=== PATIENT | male | born 1960 | race Asian ===

== ENCOUNTER → 2017-05-08 | Outpatient (CLI) | payer BC ==
[2017-05-08 09:51] LABS: BASOPHILS % 1.1 % (0.0-2.0); EOSINOPHILS % 8.2 % (0.0-5.0); HEMATOCRIT. 42.5 % (42.0-52.0); HEMOGLOBIN. 14.6 g/dL (14.0-18.0); MEAN CORPUSCULAR HEMOGLOBIN 31.3 pg (28.0-32.0); MEAN CORPUSCULAR VOLUME 91.2 fL (80.0-94.0); MEAN PLATELET VOLUME 8.2 fl (7.4-10.4); MONOCYTES % 6.9 % (2.0-8.0); NEUTROPHILS % 49.8 % (40.0-76.0); PLATELET 236 x1000/uL (130-400); RED BLOOD CELL COUNT 4.65 mill/uL (4.7-6.1)
[2017-05-08 10:07] LABS: CHLORIDE 107 mEq/L (98-107)
[2017-05-08 10:16] LABS: HDL CHOLESTEROL 50 mg/dL (40-59); LDL CHOLESTEROL 110 mg/dL (5-100); T4 FREE 0.75 ng/dL (0.76-1.46)
[2017-05-08 10:33] LABS: VITAMIN B12 SERUM 929 pg/mL (211-911)
[2017-05-08 10:52] LABS: FOLIC ACID (FOLATE) SERUM > 20.00 ng/mL (>5.38)
== END | disposition home or self-care (01) ==
LOC: LAB 09:20
PROVIDERS: ATTEND Internal Medicine Endocrinology, Diabetes & Metabolism
DX: E55.9 Vitamin D deficiency, unspecified (principal); R73.9 Hyperglycemia, unspecified; G62.9 Polyneuropathy, unspecified; Z79.899 Other long term (current) drug therapy
CPT/HCPCS: 36415; 80053; 80061; 82306; 82607; 82746; 83036; 83921; 84439; 84443; 85025

== ENCOUNTER → 2017-08-05 | Outpatient (CLI) | payer BC ==
[2017-08-05 11:41] LABS: BASOPHILS % 1.1 % (0.0-2.0); HEMATOCRIT. 42.2 % (42.0-52.0); HEMOGLOBIN. 14.8 g/dL (14.0-18.0); LYMPHOCYTES % 33.8 % (20.0-50.0); MEAN CORPUSCULAR HEMOGLOBIN 31.7 pg (28.0-32.0); MEAN CORPUSCULAR VOLUME 90.3 fL (80.0-94.0); MEAN PLATELET VOLUME 8.3 fl (7.4-10.4); MONOCYTES % 6.9 % (2.0-8.0); NEUTROPHILS % 51.2 % (40.0-76.0); PLATELET 247 x1000/uL (130-400); RED BLOOD CELL COUNT 4.67 mill/uL (4.7-6.1); RED CELL DISTRIBUTION WIDTH 13.2 % (11.6-14.6)
[2017-08-05 11:55] LABS: CHLORIDE 105 mEq/L (98-107)
[2017-08-05 12:02] LABS: LDL CHOLESTEROL 104 mg/dL (5-100)
[2017-08-05 12:03] LABS: HDL CHOLESTEROL 46 mg/dL (40-59)
[2017-08-05 12:04] LABS: T4 FREE 0.82 ng/dL (0.76-1.46)
== END | disposition home or self-care (01) ==
LOC: LAB 11:16
PROVIDERS: ATTEND Internal Medicine Endocrinology, Diabetes & Metabolism
DX: E23.0 Hypopituitarism (principal); R73.9 Hyperglycemia, unspecified; Z79.899 Other long term (current) drug therapy
CPT/HCPCS: 36415; 80053; 80061; 82533; 83001; 83002; 83036; 84146; 84402; 84403; 84439; 84443; 85025; 86200

== ENCOUNTER → 2017-11-02 | Outpatient (CLI) | payer BC ==
[2017-11-02 10:15] LABS: BASOPHILS % 1.3 % (0.0-2.0); EOSINOPHILS % 5.1 % (0.0-5.0); HEMATOCRIT. 41.6 % (42.0-52.0); HEMOGLOBIN. 14.7 g/dL (14.0-18.0); MEAN CORPUSCULAR HEMOGLOBIN 31.7 pg (28.0-32.0); MEAN CORPUSCULAR VOLUME 89.6 fL (80.0-94.0); MEAN PLATELET VOLUME 8.4 fl (7.4-10.4); MONOCYTES % 6.3 % (2.0-8.0); NEUTROPHILS % 56.3 % (40.0-76.0); PLATELET 228 x1000/uL (130-400); RED BLOOD CELL COUNT 4.65 mill/uL (4.7-6.1); RED CELL DISTRIBUTION WIDTH 12.9 % (11.6-14.6)
[2017-11-02 10:24] LABS: CHLORIDE 109 mEq/L (98-107)
[2017-11-02 10:31] LABS: LDL CHOLESTEROL 110 mg/dL (5-100)
[2017-11-02 10:33] LABS: T4 FREE 0.84 ng/dL (0.76-1.46)
[2017-11-02 10:37] LABS: HDL CHOLESTEROL 44 mg/dL (40-59)
[2017-11-03 09:10] LABS: FOLICLE STIMULATING HORMONE 7.6 mIU/mL (1.5-12.4)
== END | disposition home or self-care (01) ==
LOC: LAB 09:32
PROVIDERS: ATTEND Internal Medicine Endocrinology, Diabetes & Metabolism
DX: Z12.5 Encounter for screening for malignant neoplasm of prostate (principal); R91.8 Other nonspecific abnormal finding of lung field; E23.0 Hypopituitarism; E78.5 Hyperlipidemia, unspecified; R73.9 Hyperglycemia, unspecified
CPT/HCPCS: 36415; 71046; 80053; 80061; 82024; 83001; 83002; 83036; 84153; 84402; 84403; 84439; 84443; 85025; G0103

== ENCOUNTER → 2017-11-24 | Outpatient (CLI) | payer BC ==
[~2017-11-24] MED LIST: GADOBENATE DIMEGLUMINE 529 MG/ML 10ML IV ONE; IOHEXOL-300 100 ML BOTTLE ONE
== END | disposition home or self-care (01) ==
LOC: MRI 09:14
PROVIDERS: ATTEND Internal Medicine Endocrinology, Diabetes & Metabolism
DX: E23.0 Hypopituitarism (principal); R91.8 Other nonspecific abnormal finding of lung field
CPT/HCPCS: 70553; 71270; A9577; Q9967

== ENCOUNTER → 2018-03-15 | Outpatient (CLI) | payer BC ==
[~2018-03-15] MED LIST changes: -GADOBENATE DIMEGLUMINE 529 MG/ML 10ML IV ONE; -IOHEXOL-300 100 ML BOTTLE ONE; +MESA800T PO; +P20 PO
[2018-03-15 13:59] LABS: HEMOGLOBIN. 13.4 g/dL (14.0-18.0); MEAN CORPUSCULAR HEMOGLOBIN 31.4 pg (28.0-32.0); MEAN CORPUSCULAR VOLUME 91.1 fL (80.0-94.0); MEAN PLATELET VOLUME 7.5 fl (7.4-10.4); PLATELET 335 x1000/uL (130-400); RED BLOOD CELL COUNT 4.28 mill/uL (4.7-6.1); RED CELL DISTRIBUTION WIDTH 13.4 % (11.6-14.6)
[2018-03-15 14:05] LABS: CHLORIDE 99 mEq/L (98-107)
[2018-03-15 14:12] LABS: TOTAL IRON BINDING CAPACITY 147 ug/dL (250-450)
[2018-03-15 20:43] LABS: PLATELET ESTIMATE NORMAL
== END | disposition home or self-care (01) ==
LOC: LAB 13:20
PROVIDERS: ATTEND Internal Medicine Endocrinology, Diabetes & Metabolism
DX: K86.1 Other chronic pancreatitis (principal); E78.00 Pure hypercholesterolemia, unspecified
CPT/HCPCS: 36415; 83540; 83550; 85651; 86140

== ENCOUNTER 2018-03-19 02:19 | Inpatient (IN) | payer BC, OTHER ==
[~2018-03-19] VITALS: Ht 172.7 cm; Wt 67.3 kg
[~2018-03-19 02:19] MED LIST changes: -P20 PO
[2018-03-19] MEDS ORDERED: ONDANSETRON HCL 4MG/2ML INJ IV STA (04:17)
[2018-03-19] MEDS ORDERED: SODIUM CHLORIDE 0.9% 1,000 ML IV ONE (04:17)
[2018-03-19] MEDS ORDERED: MORPHINE SULFATE 10 MG/ML CPJ IV ONE (04:30)
[2018-03-19 04:55] LABS: BASOPHILS % 0.2 % (0.0-2.0); EOSINOPHILS % 0.3 % (0.0-5.0); HEMATOCRIT. 43.3 % (42.0-52.0); HEMOGLOBIN. 14.9 g/dL (14.0-18.0); LYMPHOCYTES % 14.3 % (20.0-50.0); MEAN CORPUSCULAR HEMOGLOBIN 31.7 pg (28.0-32.0); MEAN CORPUSCULAR VOLUME 92.1 fL (80.0-94.0); MEAN PLATELET VOLUME 8.7 fl (7.4-10.4); MONOCYTES % 7.6 % (2.0-8.0); NEUTROPHILS % 77.6 % (40.0-76.0); PLATELET 404 x1000/uL (130-400); RED CELL DISTRIBUTION WIDTH 13.8 % (11.6-14.6)
[2018-03-19 05:00] LABS: CHLORIDE 101 mEq/L (98-107)
[2018-03-19 10:00] VITALS: BP 122/69
[2018-03-19 10:30] VITALS: BP 122/69
[2018-03-19] MEDS ORDERED: HYDROMORPHONE HCL/PF 2MG/ML CPJ IV PRN (10:30)
[2018-03-19 10:58] LABS: CLARITY URINE CLOUDY (CLEAR); COLOR URINE ORANGE (YELLOW); KETONES URINE TRACE (NEGATIVE); LEUKOCYTE ESTERASE URINE 1+ (NEGATIVE); NITRITE URINE POSITIVE (NEGATIVE); OCCULT BLOOD URINE NEGATIVE (NEGATIVE); PH URINE 5.5 (4.5-8.0); PROTEIN URINE TRACE (NEGATIVE); SPECIFIC GRAVITY URINE 1.029 (1.005-1.030); UROBILINOGEN URINE 0.2 E.U./dL (0.2-1.0)
[2018-03-19 12:00] VITALS: BP 109/64
[2018-03-19] MEDS ORDERED: FAMOTIDINE 20MG/2ML VIAL IV SCH (12:00)
[2018-03-19] MEDS: DEXT 5%/0.45% NACL KCL 20MEQ/L 1,000 ML IV SCH ×2 (12:23→21:32)
[2018-03-19] MEDS: PIPERACILLIN/TAZ 3.375G PREMIX 50 ML IV SCH ×2 (12:23→21:32)
[2018-03-19] MEDS ORDERED: METHYLPREDNISOLONE SOD SUCC 125 MG/2 ML VIAL IV SCH (12:45)
[2018-03-19] MEDS: MESALAMINE 400 MG CAPSULE.DR PO SCH ×3 (13:00→17:45)
[2018-03-19] MEDS: AZITHROMYCIN 500 MG in DEXT 5% WATER 250 ML IV SCH (14:10)
[2018-03-19 16:00] VITALS: BP 105/65
[2018-03-19] MEDS: METHYLPREDNISOLONE SOD SUCC 40 MG/ML VIAL IV SCH (17:42)
[2018-03-19] MEDS: PANTOPRAZOLE SODIUM 40 MG/VIAL IV SCH (17:42)
[2018-03-19] MEDS: NYSTATIN 100,000 UNITS/ML 5ML UDC SSW SCH (17:43)
[2018-03-19] MEDS ORDERED: P20 PO (19:53)
[2018-03-19 20:00] VITALS: BP 105/62
[2018-03-19] MEDS ORDERED: ONDANSETRON HCL 4MG/2ML INJ IV PRN (20:15)
[2018-03-19 20:39] LABS: AMYLASE 341 IU/L (25-115)
[2018-03-20] VITALS: BP 93/48
[2018-03-20] MEDS: METHYLPREDNISOLONE SOD SUCC 40 MG/ML VIAL IV SCH ×3 (00:12→18:49)
[2018-03-20] MEDS: NYSTATIN 100,000 UNITS/ML 5ML UDC SSW SCH ×4 (00:12→18:49)
[2018-03-20] MEDS: DEXT 5%/0.45% NACL KCL 20MEQ/L 1,000 ML IV SCH ×3 (03:03→22:19)
[2018-03-20 04:00] VITALS: BP 108/64
[2018-03-20] MEDS: PIPERACILLIN/TAZ 3.375G PREMIX 50 ML IV SCH ×3 (05:00→22:19)
[2018-03-20 07:03] LABS: HEMATOCRIT. 36.4 % (42.0-52.0); HEMOGLOBIN. 12.6 g/dL (14.0-18.0); MEAN CORPUSCULAR HEMOGLOBIN 31.8 pg (28.0-32.0); MEAN CORPUSCULAR VOLUME 91.7 fL (80.0-94.0); PLATELET 265 x1000/uL (130-400); RED BLOOD CELL COUNT 3.97 mill/uL (4.7-6.1); RED CELL DISTRIBUTION WIDTH 13.6 % (11.6-14.6)
[2018-03-20 07:05] LABS: CHLORIDE 102 mEq/L (98-107)
[2018-03-20 08:00] VITALS: BP 103/55
[2018-03-20] MEDS: MESALAMINE 400 MG CAPSULE.DR PO SCH ×3 (08:59→19:28)
[2018-03-20] MEDS: PANTOPRAZOLE SODIUM 40 MG/VIAL IV SCH (08:59)
[2018-03-20] MEDS ORDERED: DEXTROSE 50% WATER 50ML SYRINGE IV PRN (11:15)
[2018-03-20] MEDS ORDERED: INSULIN LISPRO 100 UNITS/ML SUBCUT SCH (12:20)
[2018-03-20] MEDS ORDERED: BLOOD SUGAR DIAGNOSTIC STRIP TEST SCH (12:20)
[2018-03-20] MEDS: BLOOD SUGAR DIAGNOSTIC STRIP TEST SCH ×3 (12:54→21:15)
[2018-03-20] MEDS: AZITHROMYCIN 500 MG in DEXT 5% WATER 250 ML IV SCH (13:23)
[2018-03-20] MEDS: INSULIN LISPRO (LOW DOSE) 100 UNITS/ML SUBCUT SCH ×2 (13:30→19:33)
[2018-03-20 16:00] VITALS: BP 109/65
[2018-03-20 20:00] VITALS: BP 101/59
[2018-03-20 22:28] LABS: T4 FREE 1.04 ng/dL (0.76-1.46)
[2018-03-21] MEDS: NYSTATIN 100,000 UNITS/ML 5ML UDC SSW SCH ×4 (00:07→17:39)
[2018-03-21] MEDS: METHYLPREDNISOLONE SOD SUCC 40 MG/ML VIAL IV SCH ×3 (00:07→17:39)
[2018-03-21 00:47] VITALS: BP 96/53
[2018-03-21 04:00] VITALS: BP 104/59
[2018-03-21] MEDS: PIPERACILLIN/TAZ 3.375G PREMIX 50 ML IV SCH ×2 (05:44→14:25)
[2018-03-21] MEDS: DEXT 5%/0.45% NACL KCL 20MEQ/L 1,000 ML IV SCH (05:44)
[2018-03-21] MEDS: BLOOD SUGAR DIAGNOSTIC STRIP TEST SCH ×4 (06:21→21:33)
[2018-03-21 07:14] LABS: CHLORIDE 101 mEq/L (98-107)
[2018-03-21 07:18] LABS: HEMATOCRIT. 39.5 % (42.0-52.0); HEMOGLOBIN. 13.3 g/dL (14.0-18.0); MEAN CORPUSCULAR VOLUME 92.2 fL (80.0-94.0); PLATELET 290 x1000/uL (130-400); RED BLOOD CELL COUNT 4.28 mill/uL (4.7-6.1); RED CELL DISTRIBUTION WIDTH 13.8 % (11.6-14.6)
[2018-03-21 07:20] LABS: PHOSPHORUS 2.9 mg/dL (2.5-4.9)
[2018-03-21 08:00] VITALS: BP 102/64
[2018-03-21] MEDS: MESALAMINE 400 MG CAPSULE.DR PO SCH ×3 (09:38→17:39)
[2018-03-21] MEDS: PANTOPRAZOLE SODIUM 40 MG/VIAL IV SCH (09:38)
[2018-03-21] MEDS: INSULIN LISPRO (LOW DOSE) 100 UNITS/ML SUBCUT SCH ×3 (09:44→17:44)
[2018-03-21 10:31] LABS: PLATELET ESTIMATE NORMAL
[2018-03-21 12:00] VITALS: BP 110/62
[2018-03-21] MEDS: INSULIN GLARGINE UD 100 UNITS/ML SYR SUBCUT SCH (12:51)
[2018-03-21] MEDS: SODIUM CHL 0.45% + KCL 20MEQ/L 1,000 ML IV SCH (14:25)
[2018-03-21] MEDS: AZITHROMYCIN 500 MG in DEXT 5% WATER 250 ML IV SCH (14:27)
[2018-03-21 15:19] LABS: PLATELET ESTIMATE NORMAL
[2018-03-21 16:00] VITALS: BP 107/67
[2018-03-21 20:00] VITALS: BP 102/62
[2018-03-21] MEDS ORDERED: PIPERACILLIN/TAZ 3.375G PREMIX 50 ML IV SCH (21:00)
[2018-03-22] VITALS: BP 108/65
[2018-03-22] MEDS: SODIUM CHL 0.45% + KCL 20MEQ/L 1,000 ML IV SCH ×4 (00:02→22:00)
[2018-03-22] MEDS: NYSTATIN 100,000 UNITS/ML 5ML UDC SSW SCH ×4 (00:02→18:01)
[2018-03-22] MEDS: METHYLPREDNISOLONE SOD SUCC 40 MG/ML VIAL IV SCH ×2 (00:02→09:19)
[2018-03-22 04:00] VITALS: BP 104/64
[2018-03-22] MEDS: BLOOD SUGAR DIAGNOSTIC STRIP TEST SCH ×4 (06:32→21:25)
[2018-03-22 08:00] VITALS: BP 104/66
[2018-03-22 08:03] LABS: HEMATOCRIT. 37.8 % (42.0-52.0); HEMOGLOBIN. 12.9 g/dL (14.0-18.0); MEAN CORPUSCULAR HEMOGLOBIN 31.5 pg (28.0-32.0); MEAN CORPUSCULAR VOLUME 92.2 fL (80.0-94.0); PLATELET 298 x1000/uL (130-400); RED CELL DISTRIBUTION WIDTH 13.7 % (11.6-14.6)
[2018-03-22 08:51] LABS: CHLORIDE 102 mEq/L (98-107)
[2018-03-22 09:02] LABS: PHOSPHORUS 3.7 mg/dL (2.5-4.9)
[2018-03-22] MEDS: PANTOPRAZOLE SODIUM 40 MG/VIAL IV SCH (09:19)
[2018-03-22] MEDS: MESALAMINE 400 MG CAPSULE.DR PO SCH ×3 (09:20→18:01)
[2018-03-22] MEDS: INSULIN LISPRO (LOW DOSE) 100 UNITS/ML SUBCUT SCH ×3 (09:30→18:09)
[2018-03-22] MEDS: INSULIN GLARGINE UD 100 UNITS/ML SYR SUBCUT SCH (10:45)
[2018-03-22 12:00] VITALS: BP 107/54
[2018-03-22 12:00] LABS: PLATELET ESTIMATE NORMAL
[2018-03-22 16:00] VITALS: BP 112/77
[2018-03-22 20:00] VITALS: BP 110/70
[2018-03-22] MEDS ORDERED: INSULIN LISPRO 100 UNITS/ML SUBCUT NR (21:20)
[2018-03-23] VITALS: BP 103/54
[2018-03-23] MEDS: NYSTATIN 100,000 UNITS/ML 5ML UDC SSW SCH ×3 (00:36→13:45)
[2018-03-23 04:00] VITALS: BP 115/79
[2018-03-23] MEDS: SODIUM CHL 0.45% + KCL 20MEQ/L 1,000 ML IV SCH ×2 (05:19→13:45)
[2018-03-23] MEDS: BLOOD SUGAR DIAGNOSTIC STRIP TEST SCH ×2 (07:01→13:18)
[2018-03-23] MEDS: INSULIN LISPRO (LOW DOSE) 100 UNITS/ML SUBCUT SCH ×2 (07:20→13:52)
[2018-03-23 08:00] VITALS: BP 105/61
[2018-03-23] MEDS ORDERED: PREDNISONE 20MG TABLET PO SCH (09:00)
[2018-03-23 09:21] LABS: HEMATOCRIT. 39.5 % (42.0-52.0); HEMOGLOBIN. 13.4 g/dL (14.0-18.0); MEAN CORPUSCULAR HEMOGLOBIN 31.2 pg (28.0-32.0); MEAN CORPUSCULAR VOLUME 92.1 fL (80.0-94.0); PLATELET 300 x1000/uL (130-400); RED BLOOD CELL COUNT 4.29 mill/uL (4.7-6.1); RED CELL DISTRIBUTION WIDTH 13.9 % (11.6-14.6)
[2018-03-23 09:36] LABS: CHLORIDE 104 mEq/L (98-107)
[2018-03-23] MEDS: PANTOPRAZOLE SODIUM 40 MG/VIAL IV SCH (09:36)
[2018-03-23] MEDS: MESALAMINE 400 MG CAPSULE.DR PO SCH ×2 (09:37→13:44)
[2018-03-23] MEDS ORDERED: INSULIN GLARGINE UD 100 UNITS/ML SYR SUBCUT SCH (10:00)
[2018-03-23 12:00] VITALS: BP 103/62
[2018-03-23 14:26] LABS: PLATELET ESTIMATE NORMAL
[2018-03-23 16:00] VITALS: BP 108/62
[2018-03-23 16:43] VITALS: BP 108/62
[2018-03-24 13:06] LABS: SACCHAROMYCES CEREVISIAE IGG 25.8 Units (0.0-24.9); SACCHAROMYCES CEREVISIAE IGM <20.0 Units (0.0-24.9)
[2018-03-24 14:23] LABS: ATYPICAL pANCA <1:20 titer (Neg:<1:20)
[2018-03-24 15:07] LABS: QFT MITOGEN VALUE 0.28 IU/mL (.); QFT TB GOLD PLUS Indeterminate (Negative); QFT TB1 AG VALUE 0.03 IU/mL (.)
== END 2018-03-23 18:02 | disposition home or self-care (01) | DRG 282 ==
LOC: ER 02:19 → ENRESERV 08:04 → 6EST 08:43 → EDBEDREQ 08:47 → 6WST 03-20 12:32
PROVIDERS: ADMIT Internal Medicine Endocrinology, Diabetes & Metabolism; ATTEND Internal Medicine Endocrinology, Diabetes & Metabolism
DX: K85.90 Acute pancreatitis without necrosis or infection, unspecified (principal); E46 Unspecified protein-calorie malnutrition; M48.56XA Collapsed vertebra, not elsewhere classified, lumbar region, initial encounter for fracture; E11.65 Type 2 diabetes mellitus with hyperglycemia; E11.36 Type 2 diabetes mellitus with diabetic cataract; K51.00 Ulcerative (chronic) pancolitis without complications; K76.89 Other specified diseases of liver; K52.9 Noninfective gastroenteritis and colitis, unspecified; T38.0X5A Adverse effect of glucocorticoids and synthetic analogues, initial encounter; K80.20 Calculus of gallbladder without cholecystitis without obstruction; H26.9 Unspecified cataract; B37.49 Other urogenital candidiasis; N40.1 Benign prostatic hyperplasia with lower urinary tract symptoms; R91.1 Solitary pulmonary nodule; R00.1 Bradycardia, unspecified; E78.00 Pure hypercholesterolemia, unspecified; M81.0 Age-related osteoporosis without current pathological fracture; Z82.49 Family history of ischemic heart disease and other diseases of the circulatory system; Z82.3 Family history of stroke; Z68.22 Body mass index [BMI] 22.0-22.9, adult; Z83.3 Family history of diabetes mellitus; Z86.11 Personal history of tuberculosis; Z79.899 Other long term (current) drug therapy; Z87.891 Personal history of nicotine dependence; Y92.89 Other specified places as the place of occurrence of the external cause
CPT/HCPCS: 36415; 74018; 74177; 76700; 80048; 80061; 80076; 82150; 82270; 82330; 82705; 82962; 83036; 83605; 83735; 84100; 84134; 84439; 84443; 84681; 85007; 85027; 86256; 86480; 86671; 87015; 87045; 87177; 87209; 87427; 87449; 87493; 89055; 93005; 93306; 99285; C9113; J0456; J1170; J1815; J2270; J2405; J2543; J2920; J2930; J3480; J3490; J7030; J7050; J7060; J7512; Q9967

== ENCOUNTER → 2018-05-21 | Outpatient (CLI) | payer BC ==
[~2018-05-21] MED LIST changes: +P20 PO
[2018-05-21 09:09] LABS: BASOPHILS % 0.8 % (0.0-2.0); EOSINOPHILS % 1.1 % (0.0-5.0); HEMATOCRIT. 40.8 % (42.0-52.0); HEMOGLOBIN. 14.1 g/dL (14.0-18.0); LYMPHOCYTES % 36.4 % (20.0-50.0); MEAN CORPUSCULAR HEMOGLOBIN 32.7 pg (28.0-32.0); MEAN CORPUSCULAR VOLUME 94.4 fL (80.0-94.0); MEAN PLATELET VOLUME 8.4 fl (7.4-10.4); NEUTROPHILS % 53.7 % (40.0-76.0); PLATELET 243 x1000/uL (130-400); RED BLOOD CELL COUNT 4.32 mill/uL (4.7-6.1); RED CELL DISTRIBUTION WIDTH 14.2 % (11.6-14.6)
[2018-05-21 09:19] LABS: CHLORIDE 106 mEq/L (98-107)
[2018-05-21 09:29] LABS: LDL CHOLESTEROL 105 mg/dL (5-100)
[2018-05-21 09:32] LABS: HDL CHOLESTEROL 83 mg/dL (40-59); T4 FREE 0.91 ng/dL (0.76-1.46)
[2018-05-21 09:35] LABS: AMYLASE 153 IU/L (25-115)
== END | disposition home or self-care (01) ==
LOC: LAB 08:20
PROVIDERS: ATTEND Internal Medicine Endocrinology, Diabetes & Metabolism
DX: E03.9 Hypothyroidism, unspecified (principal); E11.9 Type 2 diabetes mellitus without complications; K85.90 Acute pancreatitis without necrosis or infection, unspecified; J98.4 Other disorders of lung
CPT/HCPCS: 36415; 80061; 82150; 82306; 83036; 84439; 84443

== ENCOUNTER → 2018-05-26 | Outpatient (CLI) | payer BC ==
[~2018-05-26] MED LIST changes: +IOHEXOL-300 100 ML BOTTLE ONE
== END | disposition home or self-care (01) ==
LOC: CT 07:45
PROVIDERS: ATTEND Internal Medicine Endocrinology, Diabetes & Metabolism
DX: K80.20 Calculus of gallbladder without cholecystitis without obstruction (principal); J98.4 Other disorders of lung
CPT/HCPCS: 71270; Q9967

== ENCOUNTER → 2018-08-18 | Outpatient (CLI) | payer BC ==
[~2018-08-18] MED LIST changes: -IOHEXOL-300 100 ML BOTTLE ONE
== END | disposition home or self-care (01) ==
LOC: MAMMO 09:40
PROVIDERS: ATTEND Internal Medicine Endocrinology, Diabetes & Metabolism
DX: M81.8 Other osteoporosis without current pathological fracture (principal)
CPT/HCPCS: 77080

== ENCOUNTER → 2018-08-24 | Outpatient (CLI) | payer BC ==
[~2018-08-24] MED LIST changes: +ALBUTEROL (0.083%) 2.5MG/3ML NEB ONE
== END | disposition home or self-care (01) ==
LOC: PF 12:19
PROVIDERS: ATTEND Internal Medicine Endocrinology, Diabetes & Metabolism
DX: R06.02 Shortness of breath (principal)
CPT/HCPCS: 94060; 94727; 94729; J7611

== ENCOUNTER → 2018-12-10 | Outpatient (CLI) | payer BC ==
[~2018-12-10] MED LIST changes: -ALBUTEROL (0.083%) 2.5MG/3ML NEB ONE
[2018-12-10 10:33] LABS: EOSINOPHILS % 7.5 % (0.0-5.0); HEMATOCRIT. 41.9 % (42.0-52.0); HEMOGLOBIN. 14.7 g/dL (14.0-18.0); LYMPHOCYTES % 23.8 % (20.0-50.0); MEAN CORPUSCULAR HEMOGLOBIN 32.6 pg (28.0-32.0); MEAN CORPUSCULAR VOLUME 93.2 fL (80.0-94.0); MEAN PLATELET VOLUME 8.1 fl (7.4-10.4); MONOCYTES % 6.9 % (2.0-8.0); NEUTROPHILS % 60.8 % (40.0-76.0); PLATELET 194 x1000/uL (130-400); RED BLOOD CELL COUNT 4.49 mill/uL (4.7-6.1); RED CELL DISTRIBUTION WIDTH 13.2 % (11.6-14.6)
[2018-12-10 10:37] LABS: CLARITY URINE CLEAR (CLEAR); COLOR URINE YELLOW (YELLOW); KETONES URINE TRACE (NEGATIVE); LEUKOCYTE ESTERASE URINE NEGATIVE (NEGATIVE); NITRITE URINE NEGATIVE (NEGATIVE); OCCULT BLOOD URINE NEGATIVE (NEGATIVE); PROTEIN URINE NEGATIVE (NEGATIVE); SPECIFIC GRAVITY URINE 1.026 (1.005-1.030); UROBILINOGEN URINE 0.2 E.U./dL (0.2-1.0)
[2018-12-10 10:49] LABS: PROTHROMBIN TIME 10.2 sec (9.6-11.0)
[2018-12-10 10:58] LABS: CHLORIDE 109 mEq/L (98-107)
[2018-12-10 11:06] LABS: LDL CHOLESTEROL 101 mg/dL (5-100)
[2018-12-10 11:07] LABS: HDL CHOLESTEROL 50 mg/dL (40-59)
[2018-12-10 11:08] LABS: T4 FREE 0.87 ng/dL (0.76-1.46)
[2018-12-11 10:06] LABS: *CREATININE RANDOM URINE 210.1 mg/dL (Not Estab.); MICROALBUMIN RANDOM URINE 9.3 ug/mL (Not Estab.)
== END | disposition home or self-care (01) ==
LOC: LAB 09:51
PROVIDERS: ATTEND Internal Medicine Endocrinology, Diabetes & Metabolism
DX: E11.9 Type 2 diabetes mellitus without complications (principal); E78.5 Hyperlipidemia, unspecified; I10 Essential (primary) hypertension; K21.9 Gastro-esophageal reflux disease without esophagitis
CPT/HCPCS: 36415; 80061; 81003; 82043; 82306; 82570; 83036; 84439; 84443

== ENCOUNTER → 2018-12-16 | Outpatient (CLI) | payer BC | END | disposition home or self-care (01) | LOC: CARD 10:24 | PROVIDERS: ATTEND Specialist | DX: Z01.810 Encounter for preprocedural cardiovascular examination (principal); R94.31 Abnormal electrocardiogram [ECG] [EKG] | CPT/HCPCS: 93350 ==

== ENCOUNTER 2019-02-01 12:32 | Emergency (ER) | payer BC ==
[~2019-02-01] VITALS: Ht 172.7 cm; Wt 76.0 kg
[2019-02-01] MEDS: LACTATED RINGERS 1,000 ML IV STA ×2 (14:52→16:48)
[2019-02-01 15:02] LABS: BASOPHILS % 0.1 % (0.0-2.0); HEMATOCRIT. 43.2 % (42.0-52.0); HEMOGLOBIN. 14.8 g/dL (14.0-18.0); LYMPHOCYTES % 10.2 % (20.0-50.0); MEAN CORPUSCULAR HEMOGLOBIN 31.7 pg (28.0-32.0); MEAN CORPUSCULAR VOLUME 92.5 fL (80.0-94.0); MEAN PLATELET VOLUME 8.4 fl (7.4-10.4); MONOCYTES % 1.8 % (2.0-8.0); NEUTROPHILS % 87.9 % (40.0-76.0); PLATELET 296 x1000/uL (130-400); RED BLOOD CELL COUNT 4.67 mill/uL (4.7-6.1); RED CELL DISTRIBUTION WIDTH 13.4 % (11.6-14.6)
[2019-02-01 15:09] LABS: CHLORIDE 102 mEq/L (98-107)
[2019-02-01 18:46] VITALS: BP 120/77
== END 2019-02-01 18:49 | disposition home or self-care (01) ==
LOC: ER 12:32
DX: K51.90 Ulcerative colitis, unspecified, without complications (principal); E86.0 Dehydration; R53.83 Other fatigue; R19.7 Diarrhea, unspecified; R11.0 Nausea; R42 Dizziness and giddiness; Z98.890 Other specified postprocedural states
CPT/HCPCS: 36415; 80053; 83605; 83690; 85025; 86140; 96360; 96361; 99283; J7120; Z7610

== ENCOUNTER → 2019-02-03 | Outpatient (CLI) | payer BC ==
[~2019-02-03] MED LIST changes: +AZAT50TA24 PO
[2019-02-06 13:07] LABS: OVA & PARASITE EXAM Final report (.)
== END | disposition home or self-care (01) ==
LOC: LAB 13:05
PROVIDERS: ATTEND Internal Medicine Gastroenterology
DX: K51.90 Ulcerative colitis, unspecified, without complications (principal)
CPT/HCPCS: 82270; 87015; 87045; 87177; 87209; 87427; 87449; 87493; 89055

== ENCOUNTER 2019-02-09 19:24 | Inpatient (IN) | payer BC ==
[~2019-02-09] VITALS: Ht 167.6 cm; Wt 75.8 kg
[~2019-02-09 19:24] MED LIST changes: -AZAT50TA24 PO
[2019-02-09] MEDS ORDERED: SODIUM CHLORIDE 0.9% 1,000 ML IV ONE ×2 (20:34→20:57)
[2019-02-09] MEDS ORDERED: MORPHINE SULFATE 4 MG/ML CPJ (NOT FOR IM USE) IV STA (20:34)
[2019-02-09 20:54] LABS: BASOPHILS % 0.2 % (0.0-2.0); EOSINOPHILS % 0.1 % (0.0-5.0); HEMATOCRIT. 36.5 % (42.0-52.0); HEMOGLOBIN. 12.8 g/dL (14.0-18.0); LYMPHOCYTES % 9.1 % (20.0-50.0); MEAN CORPUSCULAR VOLUME 91.6 fL (80.0-94.0); MONOCYTES % 7.4 % (2.0-8.0); NEUTROPHILS % 83.2 % (40.0-76.0); PLATELET 295 x1000/uL (130-400); RED BLOOD CELL COUNT 3.98 mill/uL (4.7-6.1); RED CELL DISTRIBUTION WIDTH 13.3 % (11.6-14.6)
[2019-02-09 20:58] LABS: CHLORIDE 106 mEq/L (98-107); PROTHROMBIN TIME 10.8 sec (9.6-11.0)
[2019-02-09] MEDS ORDERED: PIPERACILLIN/TAZOBACTAM 3.375GM/50ML PREMIX IV ONE (21:00)
[2019-02-09] MEDS ORDERED: PIPERACILLIN/TAZOBACTAM 3.375 G in DEXT 5% WATER 100 ML IV NR (21:04)
[2019-02-09 22:30] LABS: CLARITY URINE CLEAR (CLEAR); COLOR URINE YELLOW (YELLOW); KETONES URINE NEGATIVE (NEGATIVE); LEUKOCYTE ESTERASE URINE NEGATIVE (NEGATIVE); NITRITE URINE NEGATIVE (NEGATIVE); OCCULT BLOOD URINE NEGATIVE (NEGATIVE); PROTEIN URINE 1+ (NEGATIVE); SPECIFIC GRAVITY URINE 1.039 (1.005-1.030); UROBILINOGEN URINE 0.2 E.U./dL (0.2-1.0)
[2019-02-09] MEDS ORDERED: IOHEXOL-300 100 ML BOTTLE ONE (22:50)
[2019-02-10] VITALS (7 sets, daily range): BP systolic 103–128; BP diastolic 56–72
[2019-02-10] MEDS ORDERED: SODIUM CHLORIDE 0.9% 1,000 ML IV ONE (01:00)
[2019-02-10] MEDS ORDERED: ACETAMINOPHEN 325MG TABLET PO PRN (01:30)
[2019-02-10] MEDS ORDERED: AZAT50TA24 PO (01:48)
[2019-02-10] MEDS: HYDROMORPHONE HCL/PF 2MG/ML CPJ IV PRN ×3 (02:30→17:57)
[2019-02-10] MEDS ORDERED: SODIUM CHL 0.9% + KCL 20MEQ/L 1,000 ML IV SCH (03:00)
[2019-02-10] MEDS: METHYLPREDNISOLONE SOD SUCC 40 MG/ML VIAL IV SCH ×3 (03:27→18:35)
[2019-02-10] MEDS: INSULIN LISPRO (LOW DOSE) 100 UNITS/ML SUBCUT SCH ×3 (06:00→18:00)
[2019-02-10] MEDS ORDERED: INSULIN LISPRO 100 UNITS/ML SUBCUT SCH (06:00)
[2019-02-10] MEDS: METRONIDAZOLE 500 MG PREMIX 100 ML IV SCH ×4 (06:17→23:54)
[2019-02-10] MEDS: BLOOD SUGAR DIAGNOSTIC STRIP TEST SCH ×3 (06:45→18:44)
[2019-02-10 07:06] LABS: BASOPHILS % 0.1 % (0.0-2.0); EOSINOPHILS % 0.7 % (0.0-5.0); HEMATOCRIT. 34.4 % (42.0-52.0); LYMPHOCYTES % 7.8 % (20.0-50.0); MEAN CORPUSCULAR HEMOGLOBIN 32.2 pg (28.0-32.0); MEAN CORPUSCULAR VOLUME 92.4 fL (80.0-94.0); MEAN PLATELET VOLUME 8.1 fl (7.4-10.4); MONOCYTES % 7.7 % (2.0-8.0); NEUTROPHILS % 83.7 % (40.0-76.0); PLATELET 278 x1000/uL (130-400); RED BLOOD CELL COUNT 3.73 mill/uL (4.7-6.1)
[2019-02-10 07:12] LABS: CHLORIDE 107 mEq/L (98-107)
[2019-02-10 07:30] LABS: AMYLASE 147 IU/L (25-115)
[2019-02-10] MEDS: LEVOFLOXACIN 500MG PREMIX 100 ML IV SCH (08:00)
[2019-02-10] MEDS: MESALAMINE 400 MG CAPSULE.DR PO SCH ×3 (09:57→17:58)
[2019-02-10] MEDS: FAMOTIDINE 20MG/2ML VIAL IV SCH ×2 (09:58→20:54)
[2019-02-10] MEDS: POTASSIUM CHLORIDE INJ 40 MEQ in SODIUM CHLORIDE 0.9% 1,000 ML IV SCH ×2 (18:35→20:54)
[2019-02-10] MEDS: AZATHIOPRINE 50MG TABLET PO SCH (20:00)
[2019-02-11] VITALS: BP 101/62
[2019-02-11] MEDS: BLOOD SUGAR DIAGNOSTIC STRIP TEST SCH ×4 (00:05→17:29)
[2019-02-11] MEDS: INSULIN LISPRO (LOW DOSE) 100 UNITS/ML SUBCUT SCH ×4 (00:18→17:29)
[2019-02-11] MEDS: HYDROMORPHONE HCL/PF 2MG/ML CPJ IV PRN ×3 (02:54→21:44)
[2019-02-11 04:00] VITALS: BP 104/60
[2019-02-11] MEDS: METHYLPREDNISOLONE SOD SUCC 40 MG/ML VIAL IV SCH ×2 (06:37→17:17)
[2019-02-11] MEDS: METRONIDAZOLE 500 MG PREMIX 100 ML IV SCH ×3 (06:37→17:19)
[2019-02-11 08:00] VITALS: BP 107/67
[2019-02-11] MEDS: FAMOTIDINE 20MG/2ML VIAL IV SCH ×2 (08:22→21:05)
[2019-02-11] MEDS: LEVOFLOXACIN 500MG PREMIX 100 ML IV SCH (08:22)
[2019-02-11] MEDS: AZATHIOPRINE 50MG TABLET PO SCH (08:23)
[2019-02-11] MEDS: MESALAMINE 400 MG CAPSULE.DR PO SCH ×3 (08:23→17:17)
[2019-02-11 08:37] LABS: HEMATOCRIT. 34.2 % (42.0-52.0); LYMPHOCYTES % 10.6 % (20.0-50.0); MEAN CORPUSCULAR HEMOGLOBIN 32.4 pg (28.0-32.0); MEAN CORPUSCULAR VOLUME 92.3 fL (80.0-94.0); MEAN PLATELET VOLUME 8.8 fl (7.4-10.4); MONOCYTES % 9.2 % (2.0-8.0); NEUTROPHILS % 80.2 % (40.0-76.0); PLATELET 284 x1000/uL (130-400); RED BLOOD CELL COUNT 3.71 mill/uL (4.7-6.1); RED CELL DISTRIBUTION WIDTH 13.2 % (11.6-14.6)
[2019-02-11 08:46] LABS: CHLORIDE 109 mEq/L (98-107)
[2019-02-11 09:00] LABS: PHOSPHORUS 2.7 mg/dL (2.5-4.9)
[2019-02-11 12:00] VITALS: BP 105/61
[2019-02-11 16:00] VITALS: BP 119/67
[2019-02-11 20:00] VITALS: BP 109/71
[2019-02-12] VITALS: BP 109/69
[2019-02-12] MEDS: METRONIDAZOLE 500 MG PREMIX 100 ML IV SCH ×5 (00:37→23:23)
[2019-02-12] MEDS: BLOOD SUGAR DIAGNOSTIC STRIP TEST SCH ×5 (00:37→23:31)
[2019-02-12] MEDS: POTASSIUM CHLORIDE INJ 40 MEQ in SODIUM CHLORIDE 0.9% 1,000 ML IV SCH ×3 (00:37→17:39)
[2019-02-12] MEDS: INSULIN LISPRO (LOW DOSE) 100 UNITS/ML SUBCUT SCH ×5 (01:02→23:38)
[2019-02-12 04:00] VITALS: BP 136/82
[2019-02-12] MEDS: METHYLPREDNISOLONE SOD SUCC 40 MG/ML VIAL IV SCH ×2 (05:53→17:26)
[2019-02-12] MEDS: HYDROMORPHONE HCL/PF 2MG/ML CPJ IV PRN ×3 (06:27→21:47)
[2019-02-12 07:48] LABS: BASOPHILS % 0.1 % (0.0-2.0); EOSINOPHILS % 0.2 % (0.0-5.0); HEMOGLOBIN. 12.9 g/dL (14.0-18.0); LYMPHOCYTES % 15.3 % (20.0-50.0); MEAN CORPUSCULAR HEMOGLOBIN 32.3 pg (28.0-32.0); MEAN CORPUSCULAR VOLUME 92.5 fL (80.0-94.0); MEAN PLATELET VOLUME 8.2 fl (7.4-10.4); MONOCYTES % 12.3 % (2.0-8.0); NEUTROPHILS % 72.1 % (40.0-76.0); PLATELET 295 x1000/uL (130-400); RED CELL DISTRIBUTION WIDTH 13.3 % (11.6-14.6)
[2019-02-12 07:58] LABS: CHLORIDE 104 mEq/L (98-107)
[2019-02-12 08:00] VITALS: BP 131/79
[2019-02-12] MEDS: FAMOTIDINE 20MG/2ML VIAL IV SCH ×2 (08:58→21:54)
[2019-02-12] MEDS: AZATHIOPRINE 50MG TABLET PO SCH (08:58)
[2019-02-12] MEDS: LEVOFLOXACIN 500MG PREMIX 100 ML IV SCH ×2 (09:02→21:54)
[2019-02-12] MEDS: MESALAMINE 400 MG CAPSULE.DR PO SCH ×3 (09:29→17:27)
[2019-02-12 12:00] VITALS: BP 136/82
[2019-02-12 16:00] VITALS: BP 107/70
[2019-02-12] MEDS ORDERED: ONDANSETRON HCL 4MG/2ML INJ IV PRN (17:45)
[2019-02-12 20:00] VITALS: BP 122/82
[2019-02-12] MEDS: DICYCLOMINE HCL 10MG CAPSULE PO SCH (23:23)
[2019-02-13] VITALS: BP 123/80
[2019-02-13] MEDS: POTASSIUM CHLORIDE INJ 40 MEQ in SODIUM CHLORIDE 0.9% 1,000 ML IV SCH ×3 (01:46→16:38)
[2019-02-13 04:00] VITALS: BP 120/75
[2019-02-13] MEDS: HYDROMORPHONE HCL/PF 2MG/ML CPJ IV PRN ×2 (04:40→12:25)
[2019-02-13] MEDS: METHYLPREDNISOLONE SOD SUCC 40 MG/ML VIAL IV SCH ×2 (05:33→16:37)
[2019-02-13] MEDS: METRONIDAZOLE 500MG TABLET PO SCH ×3 (05:38→21:07)
[2019-02-13] MEDS: DICYCLOMINE HCL 10MG CAPSULE PO SCH ×4 (05:38→23:32)
[2019-02-13] MEDS: BLOOD SUGAR DIAGNOSTIC STRIP TEST SCH ×3 (05:49→16:38)
[2019-02-13] MEDS: INSULIN LISPRO (LOW DOSE) 100 UNITS/ML SUBCUT SCH ×3 (05:49→16:38)
[2019-02-13 06:55] LABS: BASOPHILS % 0.1 % (0.0-2.0); EOSINOPHILS % 0.1 % (0.0-5.0); HEMATOCRIT. 37.3 % (42.0-52.0); HEMOGLOBIN. 12.7 g/dL (14.0-18.0); LYMPHOCYTES % 17.2 % (20.0-50.0); MEAN CORPUSCULAR HEMOGLOBIN 31.6 pg (28.0-32.0); MEAN CORPUSCULAR VOLUME 92.4 fL (80.0-94.0); MEAN PLATELET VOLUME 8.3 fl (7.4-10.4); MONOCYTES % 12.6 % (2.0-8.0); PLATELET 299 x1000/uL (130-400); RED BLOOD CELL COUNT 4.03 mill/uL (4.7-6.1); RED CELL DISTRIBUTION WIDTH 13.1 % (11.6-14.6)
[2019-02-13 07:04] LABS: CHLORIDE 103 mEq/L (98-107)
[2019-02-13 08:00] VITALS: BP 109/72
[2019-02-13] MEDS: FAMOTIDINE 20MG/2ML VIAL IV SCH ×2 (08:31→20:05)
[2019-02-13] MEDS: AZATHIOPRINE 50MG TABLET PO SCH (08:31)
[2019-02-13] MEDS: MESALAMINE 400 MG CAPSULE.DR PO SCH ×3 (08:31→16:37)
[2019-02-13] MEDS ORDERED: LEVOFLOXACIN 500MG TABLET PO SCH (11:00)
[2019-02-13 12:00] VITALS: BP 111/66
[2019-02-13 13:06] LABS: ANTI-MYELOPEROXIDASE AB < 9.0 U/mL (0.0-9.0); ANTI-PROTEINASE 3 ABS < 3.5 U/mL (0.0-3.5)
[2019-02-13 16:00] VITALS: BP 117/71
[2019-02-13 20:00] VITALS: BP 128/67
[2019-02-13] MEDS: MORPHINE SULFATE 2 MG/ML CPJ (NOT FOR IM USE) IV PRN (20:07)
[2019-02-13] MEDS: LEVOFLOXACIN 500MG PREMIX 100 ML IV SCH (20:07)
[2019-02-14] VITALS: BP 99/54
[2019-02-14] MEDS: BLOOD SUGAR DIAGNOSTIC STRIP TEST SCH ×5 (00:03→20:36)
[2019-02-14] MEDS: INSULIN LISPRO (LOW DOSE) 100 UNITS/ML SUBCUT SCH ×5 (00:07→22:08)
[2019-02-14] MEDS: POTASSIUM CHLORIDE INJ 40 MEQ in SODIUM CHLORIDE 0.9% 1,000 ML IV SCH ×3 (02:51→17:54)
[2019-02-14 04:00] VITALS: BP 124/75
[2019-02-14] MEDS: METRONIDAZOLE 500MG TABLET PO SCH ×3 (05:25→20:23)
[2019-02-14] MEDS: DICYCLOMINE HCL 10MG CAPSULE PO SCH ×3 (05:25→17:43)
[2019-02-14] MEDS: METHYLPREDNISOLONE SOD SUCC 40 MG/ML VIAL IV SCH ×2 (05:25→17:44)
[2019-02-14 06:32] LABS: CHLORIDE 105 mEq/L (98-107)
[2019-02-14 06:35] LABS: EOSINOPHILS % 0.1 % (0.0-5.0); HEMATOCRIT. 38.1 % (42.0-52.0); HEMOGLOBIN. 13.2 g/dL (14.0-18.0); LYMPHOCYTES % 16.3 % (20.0-50.0); MEAN CORPUSCULAR HEMOGLOBIN 31.9 pg (28.0-32.0); MEAN CORPUSCULAR VOLUME 92.5 fL (80.0-94.0); MEAN PLATELET VOLUME 8.5 fl (7.4-10.4); NEUTROPHILS % 72.6 % (40.0-76.0); PLATELET 306 x1000/uL (130-400); RED BLOOD CELL COUNT 4.12 mill/uL (4.7-6.1); RED CELL DISTRIBUTION WIDTH 13.1 % (11.6-14.6)
[2019-02-14 06:44] LABS: LDL CHOLESTEROL 66 mg/dL (5-100); PHOSPHORUS 2.6 mg/dL (2.5-4.9)
[2019-02-14 06:47] LABS: HDL CHOLESTEROL 48 mg/dL (40-59)
[2019-02-14 08:00] VITALS: BP 104/46
[2019-02-14] MEDS: MESALAMINE 400 MG CAPSULE.DR PO SCH ×3 (08:24→17:43)
[2019-02-14] MEDS: FAMOTIDINE 20MG/2ML VIAL IV SCH ×2 (08:24→20:23)
[2019-02-14] MEDS: AZATHIOPRINE 50MG TABLET PO SCH (08:25)
[2019-02-14] MEDS: MORPHINE SULFATE 2 MG/ML CPJ (NOT FOR IM USE) IV PRN (08:27)
[2019-02-14 12:00] VITALS: BP 110/64
[2019-02-14 14:07] LABS: ATYPICAL P-ANCA <1:20 titer (Neg:<1:20); CYTOPLASMIC C-ANCA <1:20 titer (Neg:<1:20); PERINUCLEAR P-ANCA <1:20 titer (Neg:<1:20)
[2019-02-14 16:00] VITALS: BP 121/73
[2019-02-14 20:00] VITALS: BP 114/73
[2019-02-14] MEDS: HYDROMORPHONE HCL/PF 2MG/ML CPJ IV PRN (20:23)
[2019-02-14] MEDS: LEVOFLOXACIN 500MG PREMIX 100 ML IV SCH (22:02)
[2019-02-15] VITALS: BP 111/70
[2019-02-15] MEDS: DICYCLOMINE HCL 10MG CAPSULE PO SCH ×4 (00:07→17:14)
[2019-02-15] MEDS: HYDROMORPHONE HCL/PF 2MG/ML CPJ IV PRN ×2 (00:08→06:38)
[2019-02-15] MEDS: POTASSIUM CHLORIDE INJ 40 MEQ in SODIUM CHLORIDE 0.9% 1,000 ML IV SCH ×3 (01:19→18:50)
[2019-02-15 04:00] VITALS: BP 100/58
[2019-02-15] MEDS: INSULIN LISPRO (LOW DOSE) 100 UNITS/ML SUBCUT SCH ×3 (06:00→17:15)
[2019-02-15] MEDS: METHYLPREDNISOLONE SOD SUCC 40 MG/ML VIAL IV SCH ×2 (06:26→15:48)
[2019-02-15] MEDS: METRONIDAZOLE 500MG TABLET PO SCH ×2 (06:27→13:37)
[2019-02-15] MEDS: BLOOD SUGAR DIAGNOSTIC STRIP TEST SCH ×3 (06:58→17:15)
[2019-02-15 08:00] VITALS: BP 101/61
[2019-02-15 08:09] LABS: BASOPHILS % 0.1 % (0.0-2.0); HEMATOCRIT. 36.5 % (42.0-52.0); HEMOGLOBIN. 12.5 g/dL (14.0-18.0); LYMPHOCYTES % 10.8 % (20.0-50.0); MEAN CORPUSCULAR HEMOGLOBIN 31.7 pg (28.0-32.0); MEAN CORPUSCULAR VOLUME 92.8 fL (80.0-94.0); MEAN PLATELET VOLUME 8.6 fl (7.4-10.4); MONOCYTES % 8.5 % (2.0-8.0); NEUTROPHILS % 80.6 % (40.0-76.0); PLATELET 292 x1000/uL (130-400); RED BLOOD CELL COUNT 3.93 mill/uL (4.7-6.1); RED CELL DISTRIBUTION WIDTH 13.2 % (11.6-14.6)
[2019-02-15 08:22] LABS: CHLORIDE 106 mEq/L (98-107)
[2019-02-15 08:31] LABS: PHOSPHORUS 2.7 mg/dL (2.5-4.9)
[2019-02-15] MEDS: AZATHIOPRINE 50MG TABLET PO SCH (09:07)
[2019-02-15] MEDS: MESALAMINE 400 MG CAPSULE.DR PO SCH ×3 (09:07→17:14)
[2019-02-15] MEDS: FAMOTIDINE 20MG/2ML VIAL IV SCH (09:07)
[2019-02-15 12:00] VITALS: BP 102/61
[2019-02-15 12:17] LABS: ATYPICAL pANCA <1:20 titer (Neg:<1:20)
[2019-02-15 16:00] VITALS: BP 108/66
[2019-02-15 20:00] VITALS: BP 104/56
[2019-02-16] VITALS: BP 97/61
[2019-02-16] MEDS: METHYLPREDNISOLONE SOD SUCC 40 MG/ML VIAL IV SCH ×4 (00:52→21:21)
[2019-02-16] MEDS: FAMOTIDINE 20MG/2ML VIAL IV SCH ×3 (00:52→21:21)
[2019-02-16] MEDS: METRONIDAZOLE 500MG TABLET PO SCH ×4 (00:53→21:21)
[2019-02-16] MEDS: DICYCLOMINE HCL 10MG CAPSULE PO SCH ×4 (00:56→18:10)
[2019-02-16] MEDS: INSULIN LISPRO (LOW DOSE) 100 UNITS/ML SUBCUT SCH ×4 (01:07→18:20)
[2019-02-16] MEDS: POTASSIUM CHLORIDE INJ 40 MEQ in SODIUM CHLORIDE 0.9% 1,000 ML IV SCH ×3 (03:00→21:20)
[2019-02-16 04:00] VITALS: BP 99/58
[2019-02-16] MEDS: HYDROMORPHONE HCL/PF 2MG/ML CPJ IV PRN ×2 (04:34→15:41)
[2019-02-16] MEDS: BLOOD SUGAR DIAGNOSTIC STRIP TEST SCH ×4 (05:59→18:07)
[2019-02-16 06:50] LABS: HEMATOCRIT. 35.6 % (42.0-52.0); HEMOGLOBIN. 12.4 g/dL (14.0-18.0); LYMPHOCYTES % 9.1 % (20.0-50.0); MEAN CORPUSCULAR HEMOGLOBIN 31.8 pg (28.0-32.0); MEAN CORPUSCULAR VOLUME 91.5 fL (80.0-94.0); MEAN PLATELET VOLUME 8.3 fl (7.4-10.4); MONOCYTES % 5.3 % (2.0-8.0); NEUTROPHILS % 85.6 % (40.0-76.0); PLATELET 316 x1000/uL (130-400); RED BLOOD CELL COUNT 3.89 mill/uL (4.7-6.1)
[2019-02-16 07:11] LABS: CHLORIDE 105 mEq/L (98-107)
[2019-02-16 08:00] VITALS: BP_SYST 105; BP_SYST 96; BP_DIAS 58; BP_DIAS 64
[2019-02-16 09:08] LABS: SACCHAROMYCES CEREVISIAE IGG <20.0 Units (0.0-24.9); SACCHAROMYCES CEREVISIAE IGM <20.0 Units (0.0-24.9)
[2019-02-16] MEDS: AZATHIOPRINE 50MG TABLET PO SCH (09:24)
[2019-02-16] MEDS: MESALAMINE 400 MG CAPSULE.DR PO SCH ×3 (09:24→18:11)
[2019-02-16 12:00] VITALS: BP 118/51
[2019-02-16 16:00] VITALS: BP 104/69
[2019-02-16 20:00] VITALS: BP 100/56
[2019-02-17] VITALS: BP 106/53
[2019-02-17] MEDS: BLOOD SUGAR DIAGNOSTIC STRIP TEST SCH ×5 (00:08→23:36)
[2019-02-17] MEDS: DICYCLOMINE HCL 10MG CAPSULE PO SCH ×5 (00:08→23:33)
[2019-02-17] MEDS: INSULIN LISPRO (LOW DOSE) 100 UNITS/ML SUBCUT SCH ×5 (00:12→23:42)
[2019-02-17] MEDS: HYDROMORPHONE HCL/PF 2MG/ML CPJ IV PRN ×2 (03:10→16:37)
[2019-02-17 04:00] VITALS: BP 91/52
[2019-02-17] MEDS: METHYLPREDNISOLONE SOD SUCC 40 MG/ML VIAL IV SCH ×3 (05:35→21:20)
[2019-02-17] MEDS: POTASSIUM CHLORIDE INJ 40 MEQ in SODIUM CHLORIDE 0.9% 1,000 ML IV SCH ×3 (05:35→21:53)
[2019-02-17] MEDS: METRONIDAZOLE 500MG TABLET PO SCH ×3 (05:35→21:18)
[2019-02-17 07:05] LABS: HEMATOCRIT. 35.6 % (42.0-52.0); HEMOGLOBIN. 12.3 g/dL (14.0-18.0); MEAN CORPUSCULAR HEMOGLOBIN 31.9 pg (28.0-32.0); MEAN CORPUSCULAR VOLUME 92.3 fL (80.0-94.0); MEAN PLATELET VOLUME 8.3 fl (7.4-10.4); PLATELET 318 x1000/uL (130-400); RED BLOOD CELL COUNT 3.85 mill/uL (4.7-6.1); RED CELL DISTRIBUTION WIDTH 13.1 % (11.6-14.6)
[2019-02-17 08:00] VITALS: BP 114/64
[2019-02-17 08:33] LABS: CHLORIDE 107 mEq/L (98-107)
[2019-02-17] MEDS: AZATHIOPRINE 50MG TABLET PO SCH (09:13)
[2019-02-17] MEDS: MESALAMINE 400 MG CAPSULE.DR PO SCH ×3 (09:13→17:21)
[2019-02-17] MEDS: FAMOTIDINE 20MG/2ML VIAL IV SCH ×2 (09:14→20:36)
[2019-02-17 12:00] VITALS: BP 111/68
[2019-02-17 16:00] VITALS: BP 102/58
[2019-02-17] MEDS ORDERED: HYDROCODONE/ACETAMINOPHEN 5/325MG TABLET PO NR (17:54)
[2019-02-17 20:00] VITALS: BP 98/55
[2019-02-17 20:33] LABS: PLATELET ESTIMATE NORMAL
[2019-02-18] VITALS: BP 124/64
[2019-02-18] MEDS ORDERED: INSULIN GLARGINE UD 100 UNITS/ML SYR SUBCUT SCH
[2019-02-18] MEDS: HYDROCODONE/ACETAMINOPHEN 5/325MG TABLET PO PRN ×2 (01:46→10:41)
[2019-02-18 04:00] VITALS: BP 107/57
[2019-02-18 04:08] LABS: OVA & PARASITE EXAM Final report (.)
[2019-02-18] MEDS: DICYCLOMINE HCL 10MG CAPSULE PO SCH (06:00)
[2019-02-18] MEDS: METHYLPREDNISOLONE SOD SUCC 40 MG/ML VIAL IV SCH (06:01)
[2019-02-18] MEDS: INSULIN LISPRO (LOW DOSE) 100 UNITS/ML SUBCUT SCH (06:41)
[2019-02-18] MEDS: BLOOD SUGAR DIAGNOSTIC STRIP TEST SCH (06:42)
[2019-02-18 07:47] LABS: CHLORIDE 106 mEq/L (98-107)
[2019-02-18 07:53] LABS: PHOSPHORUS 2.5 mg/dL (2.5-4.9)
[2019-02-18 08:00] VITALS: BP 92/46
[2019-02-18] MEDS: MESALAMINE 400 MG CAPSULE.DR PO SCH (08:30)
[2019-02-18] MEDS: FAMOTIDINE 20MG/2ML VIAL IV SCH (08:33)
[2019-02-18] MEDS ORDERED: AZATHIOPRINE 50MG TABLET PO SCH (09:00)
[2019-02-18] MEDS: POTASSIUM CHLORIDE INJ 40 MEQ in SODIUM CHLORIDE 0.9% 1,000 ML IV SCH (10:12)
[2019-02-18 11:45] VITALS: BP 116/65
== END 2019-02-18 12:45 | disposition home or self-care (01) | DRG 386 ==
LOC: ER 19:24 → EDBEDREQ 20:42 → 6EST 23:33 → EDBEDREQ 23:35 → EDBEDREQSVC 23:35 → EDBEDREQTM 23:35 → ENRESERV 23:57
PROVIDERS: ADMIT Internal Medicine Endocrinology, Diabetes & Metabolism; ATTEND Internal Medicine Endocrinology, Diabetes & Metabolism
DX: K51.90 Ulcerative colitis, unspecified, without complications (principal); E46 Unspecified protein-calorie malnutrition; M48.56XA Collapsed vertebra, not elsewhere classified, lumbar region, initial encounter for fracture; K76.89 Other specified diseases of liver; E78.00 Pure hypercholesterolemia, unspecified; N28.1 Cyst of kidney, acquired; D72.829 Elevated white blood cell count, unspecified; K80.20 Calculus of gallbladder without cholecystitis without obstruction; R91.1 Solitary pulmonary nodule; N40.0 Benign prostatic hyperplasia without lower urinary tract symptoms; M81.0 Age-related osteoporosis without current pathological fracture; K62.89 Other specified diseases of anus and rectum; D64.9 Anemia, unspecified; R00.1 Bradycardia, unspecified; E11.65 Type 2 diabetes mellitus with hyperglycemia; T38.0X5A Adverse effect of glucocorticoids and synthetic analogues, initial encounter; I10 Essential (primary) hypertension; E78.5 Hyperlipidemia, unspecified; Z82.49 Family history of ischemic heart disease and other diseases of the circulatory system; Z82.3 Family history of stroke; Z83.3 Family history of diabetes mellitus; Z86.11 Personal history of tuberculosis; Z98.41 Cataract extraction status, right eye; Z87.891 Personal history of nicotine dependence; Z68.27 Body mass index [BMI] 27.0-27.9, adult; Y92.89 Other specified places as the place of occurrence of the external cause
CPT/HCPCS: 36415; 74177; 80048; 80061; 81003; 82150; 82962; 83520; 83615; 83735; 84100; 84134; 84439; 84443; 84484; 85651; 86140; 86256; 86671; 87015; 87045; 87177; 87209; 87427; 87449; 89055; 93005; 96365; 96375; 99285; C1893; J1170; J1815; J1956; J2270; J2543; J2920; J3480; J3490; J7030; J7060; J7500; Q9967

== ENCOUNTER → 2019-05-03 | Outpatient (CLI) | payer BC ==
[~2019-05-03] MED LIST changes: +AZAT50TA24 PO
[2019-05-03 09:56] LABS: BASOPHILS % 0.7 % (0.0-2.0); EOSINOPHILS % 2.2 % (0.0-5.0); HEMATOCRIT. 40.6 % (42.0-52.0); HEMOGLOBIN. 14.1 g/dL (14.0-18.0); LYMPHOCYTES % 19.4 % (20.0-50.0); MEAN CORPUSCULAR HEMOGLOBIN 32.5 pg (28.0-32.0); MEAN CORPUSCULAR VOLUME 93.9 fL (80.0-94.0); MEAN PLATELET VOLUME 9.2 fl (7.4-10.4); MONOCYTES % 7.3 % (2.0-8.0); NEUTROPHILS % 70.4 % (40.0-76.0); PLATELET 207 x1000/uL (130-400); RED BLOOD CELL COUNT 4.33 mill/uL (4.7-6.1); RED CELL DISTRIBUTION WIDTH 14.1 % (11.6-14.6)
[2019-05-03 10:23] LABS: CHLORIDE 106 mEq/L (98-107)
[2019-05-03 10:33] LABS: LDL CHOLESTEROL 101 mg/dL (5-100)
[2019-05-03 10:35] LABS: HDL CHOLESTEROL 76 mg/dL (40-59); T4 FREE 0.92 ng/dL (0.76-1.46)
== END | disposition home or self-care (01) ==
LOC: LAB 09:32
PROVIDERS: ATTEND Internal Medicine Endocrinology, Diabetes & Metabolism
DX: E11.9 Type 2 diabetes mellitus without complications (principal); E78.5 Hyperlipidemia, unspecified; E55.9 Vitamin D deficiency, unspecified
CPT/HCPCS: 36415; 80053; 80061; 82306; 83036; 84439; 84443; 85025

== ENCOUNTER → 2019-10-11 | Outpatient (CLI) | payer BC ==
[2019-10-11 11:57] LABS: EOSINOPHILS % 2.4 % (0.0-5.0); HEMATOCRIT. 41.3 % (42.0-52.0); HEMOGLOBIN. 14.5 g/dL (14.0-18.0); LYMPHOCYTES % 26.3 % (20.0-50.0); MEAN CORPUSCULAR HEMOGLOBIN 33.1 pg (28.0-32.0); MEAN CORPUSCULAR VOLUME 94.3 fL (80.0-94.0); MEAN PLATELET VOLUME 8.5 fl (7.4-10.4); MONOCYTES % 7.2 % (2.0-8.0); NEUTROPHILS % 63.1 % (40.0-76.0); PLATELET 200 x1000/uL (130-400); RED BLOOD CELL COUNT 4.38 mill/uL (4.7-6.1); RED CELL DISTRIBUTION WIDTH 13.4 % (11.6-14.6)
[2019-10-11 12:10] LABS: CHLORIDE 107 mEq/L (98-107)
[2019-10-11 12:19] LABS: HDL CHOLESTEROL 60 mg/dL (40-59)
[2019-10-11 12:20] LABS: LDL CHOLESTEROL 110 mg/dL (5-100)
== END | disposition home or self-care (01) ==
LOC: LAB 11:38
PROVIDERS: ATTEND Internal Medicine Endocrinology, Diabetes & Metabolism
DX: E78.5 Hyperlipidemia, unspecified (principal); E11.9 Type 2 diabetes mellitus without complications; I10 Essential (primary) hypertension; E55.9 Vitamin D deficiency, unspecified
CPT/HCPCS: 36415; 80053; 80061; 82306; 83036; 85025

== ENCOUNTER → 2019-10-13 | Outpatient (CLI) | payer BC ==
[~2019-10-13] MED LIST changes: +IOHEXOL-350 100 ML BOTTLE ONE
== END | disposition home or self-care (01) ==
LOC: CT 08:36
PROVIDERS: ATTEND Internal Medicine Endocrinology, Diabetes & Metabolism
DX: R91.8 Other nonspecific abnormal finding of lung field (principal); J98.4 Other disorders of lung; R06.02 Shortness of breath
CPT/HCPCS: 71270; Q9967

== ENCOUNTER 2019-11-30 18:13 | Emergency (ER) | payer BC ==
[~2019-11-30] VITALS: Ht 172.7 cm; Wt 77.0 kg
[~2019-11-30 18:13] MED LIST changes: -IOHEXOL-350 100 ML BOTTLE ONE
[2019-11-30] MEDS ORDERED: LIDOCAINE HCL 1% 20ML VIAL (Pyxis) INJ INFIL ONE (18:45)
[2019-11-30] MEDS ORDERED: TETANUS, DIPHTHERIA, PERTUSSIS VAC/PF 0.5ML (>7YR OLD) IM ONE (18:45)
[2019-11-30] MEDS ORDERED: ACETAMINOPHEN 500MG TABLET PO ONE (18:45)
[2019-11-30 21:17] VITALS: BP 125/84
== END 2019-11-30 21:18 | disposition home or self-care (01) ==
LOC: ER 18:13
DX: S01.81XA Laceration without foreign body of other part of head, initial encounter (principal); W22.8XXA Striking against or struck by other objects, initial encounter; Y93.89 Activity, other specified; Y92.89 Other specified places as the place of occurrence of the external cause; Z23 Encounter for immunization
CPT/HCPCS: 12014; 90471; 90715; 99283; J3490

== ENCOUNTER → 2020-01-24 | Outpatient (CLI) | payer BC ==
[2020-01-24 10:20] LABS: BASOPHILS % 0.8 % (0.0-2.0); EOSINOPHILS % 2.5 % (0.0-5.0); HEMATOCRIT. 42.1 % (42.0-52.0); HEMOGLOBIN. 14.8 g/dL (14.0-18.0); LYMPHOCYTES % 25.3 % (20.0-50.0); MEAN CORPUSCULAR HEMOGLOBIN 33.2 pg (28.0-32.0); MEAN CORPUSCULAR VOLUME 94.7 fL (80.0-94.0); MEAN PLATELET VOLUME 8.5 fl (7.4-10.4); MONOCYTES % 7.1 % (2.0-8.0); NEUTROPHILS % 64.3 % (40.0-76.0); PLATELET 192 x1000/uL (130-400); RED BLOOD CELL COUNT 4.45 mill/uL (4.7-6.1); RED CELL DISTRIBUTION WIDTH 13.3 % (11.6-14.6)
[2020-01-24 10:30] LABS: CHLORIDE 105 mEq/L (98-107)
[2020-01-24 10:39] LABS: LDL CHOLESTEROL 112 mg/dL (5-100)
[2020-01-24 10:40] LABS: HDL CHOLESTEROL 61 mg/dL (40-59)
[2020-01-24 10:41] LABS: T4 FREE 0.91 ng/dL (0.76-1.46)
[2020-01-25 09:07] LABS: FOLICLE STIMULATING HORMONE 10.4 mIU/mL (1.5-12.4); LUTEINIZING HORMONE 5.9 mIU/mL (1.7-8.6); PROLACTIN 4.9 ng/mL (4.0-15.2)
[2020-01-25 09:07] LABS: *CREATININE RANDOM URINE 208.1 mg/dL (Not Estab.)
[2020-01-25 12:11] LABS: MICROALBUMIN RANDOM URINE 12.7 ug/mL (Not Estab.)
== END | disposition home or self-care (01) ==
LOC: LAB 09:26
PROVIDERS: ATTEND Internal Medicine Endocrinology, Diabetes & Metabolism
DX: E78.5 Hyperlipidemia, unspecified (principal); E11.9 Type 2 diabetes mellitus without complications; I10 Essential (primary) hypertension; Z12.5 Encounter for screening for malignant neoplasm of prostate; M85.80 Other specified disorders of bone density and structure, unspecified site
CPT/HCPCS: 36415; 80053; 80061; 82043; 82570; 83001; 83002; 83036; 83735; 83970; 84100; 84146; 84153; 84402; 84403; 84439; 84443; 85025; G0103

== ENCOUNTER → 2020-06-13 | Outpatient (CLI) | payer BC ==
[2020-06-13 09:49] LABS: EOSINOPHILS % 6.8 % (0.0-5.0); HEMATOCRIT. 42.7 % (42.0-52.0); HEMOGLOBIN. 14.9 g/dL (14.0-18.0); LYMPHOCYTES % 27.7 % (20.0-50.0); MEAN CORPUSCULAR VOLUME 94.5 fL (80.0-94.0); MEAN PLATELET VOLUME 8.1 fl (7.4-10.4); MONOCYTES % 8.1 % (2.0-8.0); NEUTROPHILS % 56.4 % (40.0-76.0); PLATELET 212 x1000/uL (130-400); RED BLOOD CELL COUNT 4.52 mill/uL (4.7-6.1); RED CELL DISTRIBUTION WIDTH 12.9 % (11.6-14.6)
[2020-06-13 09:51] LABS: CLARITY URINE CLEAR (CLEAR); COLOR URINE YELLOW (YELLOW); KETONES URINE NEGATIVE (NEGATIVE); LEUKOCYTE ESTERASE URINE NEGATIVE (NEGATIVE); NITRITE URINE NEGATIVE (NEGATIVE); OCCULT BLOOD URINE NEGATIVE (NEGATIVE); PROTEIN URINE NEGATIVE (NEGATIVE); SPECIFIC GRAVITY URINE 1.019 (1.005-1.030); UROBILINOGEN URINE 0.2 E.U./dL (0.2-1.0)
[2020-06-13 09:57] LABS: CHLORIDE 107 mEq/L (98-107)
[2020-06-13 10:05] LABS: LDL CHOLESTEROL 120 mg/dL (5-100); PARTIAL THROMBOPLASTIN TIME 24.8 sec (23.4-31.0); PHOSPHORUS 3.4 mg/dL (2.5-4.9); PROTHROMBIN TIME 10.6 sec (9.6-11.0)
[2020-06-13 10:07] LABS: HDL CHOLESTEROL 47 mg/dL (40-59)
[2020-06-14 07:08] LABS: *CREATININE RANDOM URINE 109.3 mg/dL (Not Estab.); MICROALBUMIN RANDOM URINE 6.2 ug/mL (Not Estab.)
== END | disposition home or self-care (01) ==
LOC: LAB 09:10
PROVIDERS: ATTEND Internal Medicine Endocrinology, Diabetes & Metabolism
DX: E11.9 Type 2 diabetes mellitus without complications (principal); M85.88 Other specified disorders of bone density and structure, other site; E78.5 Hyperlipidemia, unspecified; N31.1 Reflex neuropathic bladder, not elsewhere classified
CPT/HCPCS: 36415; 80053; 80061; 81003; 82043; 82570; 83036; 83735; 83970; 84100; 84443; 85025

== ENCOUNTER → 2020-06-18 | Outpatient (CLI) | payer BC | END | disposition home or self-care (01) | LOC: LAB 09:11 | PROVIDERS: ATTEND Ophthalmology | DX: Z20.822 Contact with and (suspected) exposure to COVID-19 (principal) | CPT/HCPCS: 87426 ==

== ENCOUNTER → 2020-07-02 | Outpatient (CLI) | payer BC ==
[~2020-07-02] MED LIST changes: +MESA1.2T2 PO
== END | disposition home or self-care (01) ==
LOC: LAB 09:00
PROVIDERS: ATTEND Ophthalmology
DX: Z01.812 Encounter for preprocedural laboratory examination (principal); Z20.822 Contact with and (suspected) exposure to COVID-19
CPT/HCPCS: 87426

== ENCOUNTER → 2020-07-03 | Day surgery (SDC) | payer BC ==
[~2020-07-03] VITALS: Ht 172.7 cm; Wt 77.1 kg
[~2020-07-03] MED LIST changes: +BALANCED SALT IRRIG SOLN 15ML ONE; +BALANCED SALT IRRIG SOLN COMB1 500ML OP NR; +BUPIVACAINE HCL/PF 0.75% (7.5MG/ML) 10ML ONE; +CIPROFLOXACIN 0.3% OPHTH SOLN 2.5ML ONE; +FENTANYL CITRATE/PF 50MCG/ML 2ML VIAL ONE; +GLYCOPYRROLATE 0.2 MG/ML 2ML VIAL ONE; +HYALURONATE SODIUM 10 MG/ML 0.55ML SYRINGE IO ONE; +KETOROLAC 30MG/ML VIAL ONE; +LACTATED RINGERS 1,000 ML IV SCH; +LIDOCAINE HCL 2%/EPINEPHRINE 1:100,000 20 ML VIAL INFIL ONE; +LIDOCAINE HCL/PF 2% 20 MG/ML 10ML VIAL ONE; +MIDAZOLAM HCL 2 MG/2 ML VIAL ONE; +NEO/POLYMYX B SULF/DEXAMETH OPHTH OINT 3.5GM ONE; +PHENYLEPHRINE HCL 10% OPHTH DROPS 5ML LEFTEYE NR; +PREDNISOLONE ACETATE 1% OPHTH DROPS 5ML ONE; +PROPOFOL 200MG/20ML VIAL IV ONE; +TETRACAINE 0.5% OPHTH DROPS 4ML ONE; +TROPICAMIDE 1% OPHTH DROPS 15ML LEFTEYE NR; +TROPICAMIDE 1% OPHTH DROPS 15ML ONE
== END | disposition home or self-care (01) ==
LOC: OR 08:32
PROVIDERS: ATTEND Ophthalmology
DX: H25.89 Other age-related cataract (principal); E03.9 Hypothyroidism, unspecified; E78.00 Pure hypercholesterolemia, unspecified; Z79.899 Other long term (current) drug therapy; Z98.890 Other specified postprocedural states; Z82.49 Family history of ischemic heart disease and other diseases of the circulatory system
CPT/HCPCS: 66984; J1885; J2250; J2704; J3010; J3490; V2632

== ENCOUNTER → 2021-02-11 | Outpatient (CLI) | payer BC ==
[~2021-02-11] MED LIST changes: -BALANCED SALT IRRIG SOLN 15ML ONE; -BALANCED SALT IRRIG SOLN COMB1 500ML OP NR; -BUPIVACAINE HCL/PF 0.75% (7.5MG/ML) 10ML ONE; -CIPROFLOXACIN 0.3% OPHTH SOLN 2.5ML ONE; -FENTANYL CITRATE/PF 50MCG/ML 2ML VIAL ONE; -GLYCOPYRROLATE 0.2 MG/ML 2ML VIAL ONE; -HYALURONATE SODIUM 10 MG/ML 0.55ML SYRINGE IO ONE; -KETOROLAC 30MG/ML VIAL ONE; -LACTATED RINGERS 1,000 ML IV SCH; -LIDOCAINE HCL 2%/EPINEPHRINE 1:100,000 20 ML VIAL INFIL ONE; -LIDOCAINE HCL/PF 2% 20 MG/ML 10ML VIAL ONE; -MESA800T PO; -MIDAZOLAM HCL 2 MG/2 ML VIAL ONE; -NEO/POLYMYX B SULF/DEXAMETH OPHTH OINT 3.5GM ONE; -P20 PO; -PHENYLEPHRINE HCL 10% OPHTH DROPS 5ML LEFTEYE NR; -PREDNISOLONE ACETATE 1% OPHTH DROPS 5ML ONE; -PROPOFOL 200MG/20ML VIAL IV ONE; -TETRACAINE 0.5% OPHTH DROPS 4ML ONE; -TROPICAMIDE 1% OPHTH DROPS 15ML LEFTEYE NR; -TROPICAMIDE 1% OPHTH DROPS 15ML ONE
[2021-02-11 09:26] LABS: BASOPHILS % 0.5 % (0.0-2.0); EOSINOPHILS % 1.8 % (0.0-5.0); HEMATOCRIT. 41.6 % (42.0-52.0); LYMPHOCYTES % 23.7 % (20.0-50.0); MEAN CORPUSCULAR HEMOGLOBIN 32.2 pg (28.0-32.0); MEAN CORPUSCULAR VOLUME 95.3 fL (80.0-94.0); MEAN PLATELET VOLUME 7.9 fl (7.4-10.4); MONOCYTES % 7.9 % (2.0-8.0); NEUTROPHILS % 66.1 % (40.0-76.0); PLATELET 209 x1000/uL (130-400); RED BLOOD CELL COUNT 4.37 mill/uL (4.7-6.1); RED CELL DISTRIBUTION WIDTH 13.2 % (11.6-14.6)
[2021-02-11 09:35] LABS: CHLORIDE 107 mEq/L (98-107)
== END | disposition home or self-care (01) ==
LOC: LAB 08:49
PROVIDERS: ATTEND Internal Medicine Gastroenterology
DX: K51.90 Ulcerative colitis, unspecified, without complications (principal)
CPT/HCPCS: 36415; 80053; 82784; 83516; 85025; 85651; 86140; 86255